=== PATIENT | female | born 1990 | race Caucasian/White ===

== ENCOUNTER 2017-03-08 08:20 | Day surgery (SDC) | payer OTHER ==
[~2017-03-08] VITALS: Ht 165.1 cm; Wt 104.3 kg
[2017-03-08] MEDS ORDERED: TORADOL10 MG PO (11:03)
[2017-03-08] MEDS ORDERED: ZARAH TABLET1 EACH PO (11:04)
[2017-03-08] MEDS ORDERED: ULTRAM50 MG PO (11:04)
[2017-03-08 11:10] VITALS: BP 127/91; Ht 165.1 cm; Wt 104.3 kg
[2017-03-08 11:14] LABS: HCG URINE NEGATIVE (NEGATIVE)
[2017-03-08 11:52] LABS: HEMATOCRIT 42.7 % (36.0-48.0); MCH 28.1 pg (26.0-34.0); MCHC 32.8 g/dL (31.0-37.0); MCV 85.7 fL (80.0-100.0); MEAN PLATELET VOLUME 9.6 fL (7.4-10.4); RBC 4.98 10x6/uL (4.00-5.40); RDW 12.8 % (11.5-14.5); WBC 11.3 10x3/uL (4.8-10.8)
--- NOTE | 2017-03-08 15:04 | NUR ---
1505 DISCHARGE INSTRUCTIONS COMPLETE. PT HAS NO QUESTIONS OR CONCERNS AT THIS TIME. PT ESCORTED OUT BY VOLUNTEER.
--- NOTE | 2017-04-10 13:13 | HP ---
PATIENT: MADHURI MELGOZA [place] MEDICAL RECORD: [id number] ACCOUNT: [id number] LOCATION:[facility] : 92 ADMISSION DATE: 03/08/17 HISTORY AND PHYSICAL EXAMINATION HISTORY OF PRESENT ILLNESS: Madhuri is 26 years old. She has been having progressive problems with chronic pharyngitis and caseous tonsillitis. She is being admitted for tonsillectomy. PAST MEDICAL HISTORY: Otherwise negative. PAST SURGICAL HISTORY: None. CURRENT MEDICATIONS: Contrave, Duexis, Arlen. ALLERGIES: No known drug allergies. PHYSICAL EXAMINATION: GENERAL: She is healthy-appearing, developmentally normal. FACE: Normal, symmetric, no lesions. EYES: Sclerae and conjunctivae are normal. EARS: Canals and TMs are normal. NOSE: No masses, polyps, or drainage. 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 NECK: No masses, no adenopathy. CHEST: Clear. CARDIOVASCULAR: Regular rate and rhythm, no murmur. EXTREMITIES: Normal. IMPRESSION: Chronic pharyngitis and chronic caseous tonsillitis. PLAN: Tonsillectomy and adenoidectomy. TRANSINT:[id number] Voice Confirmation ID: [id number] DOCUMENT ID: [id number] AURORA NASSAR MD at 1313 CC: [id number] DICTATION DATE: 03/07/17 1455 REVERBERATORY SKIMMER: 03/07/17 1536 [facility] 03/08/[address] [address]
--- NOTE | 2017-04-10 13:13 | OP ---
PATIENT NAME: MADHURI MELGOZA [place] MEDICAL RECORD: [id number] :89 LOCATION:[facility] ADMISSION DATE: SURGEON: AURORA ANDREWS MD DATE OF OPERATION: 03/08/2017 PREOPERATIVE DIAGNOSES: Chronic pharyngitis. POSTOPERATIVE DIAGNOSES: Chronic pharyngitis. PROCEDURE: Tonsillectomy and adenoidectomy. SURGEON: Aurora Andrews MD ANESTHESIA: General orotracheal. BLOOD LOSS: Less than 5 cc. SPECIMENS: Right and left tonsil. COMPLICATIONS: None. DISPOSITION: Recovery stable. PROCEDURE NOTE: She is brought to the operating room and placed in supine position, sedated and intubated by anesthesia. The eyes were taped. The table was turned 90 degrees. Head drapes applied and she was positioned for tonsillectomy. Using a headlight, a Skylar-Aric mouth gag was carefully inserted and elevated on a towel on the chest. The palate was examined and palpated. It was normal. A red rubber catheter was placed through right side of the nose into the pharynx and grasped with tonsil clamp to retract the soft palate. Using a mirror, the nasopharynx was examined. Suction cautery on a setting of 35 was used to ablate and suction of the adenoid tissue. The choanae and eustachian tube orifices were normal bilaterally. The red rubber catheter was let down and removed. The right tonsil was grasped at the superior pole with a straight Allis clamp. Spatula tip cautery on a setting of 9 was used to dissect out the tonsil along its capsule, preserving the anterior and posterior tonsillar pillars. The left tonsil was removed in the same fashion. Then, both sides of the nose were irrigated with saline. The pharynx was suctioned. Tonsillar fossae were agitated. Suction cautery on a setting of 20 was used to control minimal oozing. With the field clean and dry, she was awakened, extubated, and transported to recovery in good condition. No complications. TRANSINT:[id number] Voice Confirmation ID: [id number] DOCUMENT ID: [id number] AURORA ANDREWS MD at 1313 CC: [id number] DICTATION DATE: 03/08/17 1325 LOCOMOTIVE OILER: 03/08/17 1507 [facility] 03/08/17 [facility] [address] [place] [address]
== END 2017-03-08 15:06 | disposition home or self-care (01) ==
LOC: D.OPS 08:20 → D.PAN 10:45 → D.OPS 11:15
PROVIDERS: Anesthesiology; Otolaryngology
DX: J31.2 Chronic pharyngitis (principal); Z01.812 Encounter for preprocedural laboratory examination